=== PATIENT | female | born 1930 | race African-American/Black ===

== ENCOUNTER 2017-11-02 09:30 | Inpatient (IN) | payer MEDICARE, MEDICAID ==
[2017-11-02 09:58] LABS: Hemoglobin 10.7 g/dL (12.0-16.0); Mean Corpuscular HGB CONC 32.7 g/dL (32.0-36.0); Mean Corpuscular Hemoglobin 34.6 pg (27.0-31.0); Mean Platelet Volume 7.2 fL (7.4-10.4); Platelet Count 146 thou/uL (130-400); RBC Distribution Width 15.4 % (11.5-14.5); White Blood Cell (WBC) Count 11.3 thou/uL (4.8-10.8)
[2017-11-02 10:03] LABS: #Lymphocytes 1.3 thou/uL (1.20-3.40); #Monocytes 1.5 thou/uL (0.11-0.59); #Neutrophils 8.4 thou/uL (1.40-6.50); %Basophils 0.1 % (0.0-1.0); %Eosinophils 0.3 % (0.0-10.0); %Lymphocytes 11.5 % (21.0-51.0); %Monocytes 13.2 % (0.0-10.0)
[2017-11-02 10:06] LABS: INR-International Normal Ratio 1.2; PTT 30.8 SEC (22.9-36.1); Prothrombin Time 15.3 SEC (12.0-14.7)
[2017-11-02 10:22] LABS: ALT (SGPT) 52 U/L (8-55); AST (SGOT) 67 U/L (5-34); Albumin 3.9 g/dL (3.4-4.8); Alkaline Phosphatase 166 U/L (40-150); Anion Gap 14 mmol/L (10-20); BUN (Urea Nitrogen) 40 mg/dL (9.8-20.1); Bilirubin, Total 0.5 mg/dL (0.2-1.2); Calc. Creatinine Clearance 0 mL/min (70-130); Calcium 8.7 mg/dL (7.8-10.44); Carbon Dioxide 29 mmol/L (23-31); Chloride 95 mmol/L (98-107); Estimated GFR-MDRD 11; Globulin 3.2 g/dL (2.4-3.5); Glucose 127 mg/dL (83-110); Lipase 15 U/L (8-78); Magnesium 2.4 mg/dL (1.6-2.6); Potassium 4.4 mmol/L (3.5-5.1); Protein, Total 7.1 g/dL (6.0-8.3); Sodium 134 mmol/L (136-145)
[2017-11-02 10:26] LABS: CKMB 2.8 ng/mL (0-6.6); Troponin I 0.024 ng/mL (< 0.028)
[2017-11-02] MEDS ORDERED: methylPREDNISolone Sod Succ/PF 125 MG/2 ML VIAL ONE (11:23)
[2017-11-02] MEDS ORDERED: Piperacillin/Tazobactam 3.375 GM VIAL ONE (11:23)
--- NOTE | 2017-11-02 11:26 | RAD ---
PORTABLE UPRIGHT FRONTAL CHEST RADIOGRAPH: 11/02/2017 HISTORY: Generalized weakness and shortness of breath. History of atrial fibrillation. COMPARISON: 04/01/2016 FINDINGS: The cardiac silhouette is prominent. Atherosclerotic calcification of the aortic arch is noted. Pro minent bilateral shoulder osteoarthritic changes. No lobar consolidation or alveolar edema. IMPRESSION: No focal consolidation or alveolar edema. POS: [facility]
[2017-11-02 12:13] LABS: Bilirubin Small (Negative); Blood, Urine Moderate (Negative); Clarity CLOUDY (Clear); Glucose, Urine (Dipstick) Negative (Negative); Leukocyte Large (Negative); Nitrite Negative (Negative); Protein, Urine (Dipstick) 30 mg/dL (Neg-Trace); Specific Gravity, Urine 1.019 (1.002-1.036); Urobilinogen 0.2 mg/dL (0.2-1.0)
[2017-11-02 12:15] LABS: Bacteria/HPF 2+ HPF (None Seen); Pathc Cast-AUWi Flag 1.59 (0-2.49); Squamous Epithelial 0-3 HPF (0-3)
[2017-11-02 12:26] LABS: Yeast-All Forms 2+ HPF (None Seen)
[2017-11-02 12:27] LABS: Hyaline Casts/LPF 0-3 HYALINE CAST LPF (0-3 Hyaline)
--- NOTE | 2017-11-02 12:44 | CT ---
HEAD CT WITHOUT CONTRAST: 11/02/2017 HISTORY: Generalized weakness and shortness of breath. COMPARISON: 04/01/2016 TECHNIQUE: Serial axial CT imaging at 5 mm intervals, from the vertex through the skull base, without contrast. FINDINGS: The imaged paranasal sinuses and mastoid air cells are well aerated. There is no displaced calvarial fracture. No intracranial hemorrhage, midline shift, or mass effect is seen. There is atherosclerotic calcification of the cavernous carotid arteries. There is periventricular, deep, and subcortical white matter hypodensity, right greater than left, ev idence of small vessel disease. There is stable diffuse cerebral volume loss. IMPRESSION: Chronic findings, as described above. No intracranial hemorrhage. If there is concern for acute inf arction, follow-up brain MRI is suggested. POS: [facility]
[2017-11-02 14:16] LABS: Troponin I 0.035 ng/mL (< 0.028)
[2017-11-02 14:43] LABS: Actual Bicarbonate (HCO3a) 28.3 mEq/L (22-26); Base Excess (BEa) 1.7 mEq/L (0 (+/-) 2.5); CO2 Tension 54.8 mmHg (35.0-45.0); Hematocrit-ABG 35.7 % (36.0-47.0); O2 Tension (PaO2) 63.9 mmHg (80.0-100.0); pH, Arterial 7.33 (7.35-7.45)
[2017-11-02 14:44] LABS: Analyzer IN Cardio ER; Calcium, Ionized 1.1 mmol/L (1.12-1.30); Puncture Site RBRACH
[2017-11-02] MEDS ORDERED: cefTRIAXone\\ROCEPHIN 1 GM in Sodium Chloride 0.9% 100 ML IVPB SCH (14:45)
[2017-11-02] MEDS ORDERED: Ondansetron ODT 4 MG TAB SL PRN (16:22)
[2017-11-02] MEDS ORDERED: Ondansetron HCl/PF 4 MG/2 ML Vial IVP PRN ×2 (16:22→18:55)
[2017-11-02] MEDS ORDERED: Acetaminophen 325 MG TAB PO PRN (16:22)
[2017-11-02 18:20] LABS: Troponin I 0.039 ng/mL (< 0.028)
[2017-11-02] MEDS ORDERED: Chloraseptic Spray 180 ml Bottle PO PRN (18:55)
[2017-11-02] MEDS ORDERED: Calcium Acetate 667 MG CAP PO PRN (18:55)
[2017-11-02] MEDS ORDERED: cloNIDine 0.1 MG TAB PO PRN (18:55)
[2017-11-02] MEDS ORDERED: Ondansetron ODT 4 MG TAB PO PRN (18:55)
[2017-11-02] MEDS ORDERED: Lidocaine-Prilocaine 2.5% Cream 5 GM TUBE TOP SCH (19:00)
[2017-11-02] MEDS: Acetaminophen 500 MG TAB PO PRN (20:10)
[2017-11-02] MEDS: Folic Acid/Vit B Comp W-C PO SCH (20:10)
[2017-11-02] MEDS: Docusate 100 MG CAP PO SCH (20:10)
[2017-11-02] MEDS: Furosemide 40 MG TAB PO SCH (20:10)
[2017-11-02] MEDS: Artificial Tear Sol 15 ML BOT EA EYE SCH (20:11)
[2017-11-02] MEDS: Gabapentin 100 MG CAP PO SCH (20:11)
[2017-11-02] MEDS: Losartan 25 MG TAB PO SCH (20:11)
[2017-11-02] MEDS: Lidocaine-Prilocaine 2.5% Cream 5 GM TUBE TOP SCH (20:12)
[2017-11-02] MEDS ORDERED: Famotidine 20 MG TAB PO SCH (21:00)
[2017-11-02] MEDS ORDERED: Dextrose 5% in Water 1,000 ML IV PRN (21:30)
[2017-11-02] MEDS ORDERED: Insulin Regular 300 UNITS/3 ML VIAL SC PRN ×2 (21:30)
[2017-11-02] MEDS ORDERED: Dextrose 50% Abboject 50 ML SYRINGE SLOW IVP PRN (21:30)
[2017-11-02] MEDS: Ciprofloxacin Lactate/D5W 200 MG in Premix Bag 1 BAG IVPB SCH (21:34)
--- NOTE | 2017-11-02 23:35 | HP ---
DATE OF ADMISSION: 11/02/2017 PRIMARY CARE PROVIDER: Dr. Loyda Marie. PRIMARY COMMODITY DIRECTOR: Dr. Joe Davenport. HISTORY OF PRESENT ILLNESS: This is an 87-year-old -Maldivian female who presents to [facility] in transfer from [facility] with apparent increased shortness of breath, wheezing, general weakness and altered mentation. The patient was evaluated by EMS personnel at [facility], placed on oxygen supplementation as well as given bronchodilator therapy w ith DuoNebs x3 en route to the emergency room. The patient initially noted hypoxic in the 80s receiv ing the bronchodilator therapy and oxygen supplementation. The patient apparently also received Roce phin IV x1 dose. History is obtained after discussions with the ER attending as well as review of [facility] records as patient is unable to provide a coherent and consistent history. T he patient apparently developed the symptoms in the last 24 hours. No specific documented fever, chi lls, exposure history. No history of recent falls; however, the patient does have a history of falls remotely precluding anticoagulation for chronic atrial fibrillation. The patient does report that s he typically does not ambulate and needs assistance to transfer to a wheelchair for mobilization. e patient admits to increased dry cough, but no hemoptysis. No change to bowel movements with last b owel movement in the last 24 hours. The patient is also with significant history of end-stage renal disease requiring hemodialysis 3 times per week. The patient states she had noticed some increased s welling of her lower extremities and shortness of breath, especially when lying flat. In the emergen cy room, the patient underwent general evaluation including chest imaging showing no acute infiltrate s. The patient received IV vancomycin, Rocephin, Zosyn, Solu-Medrol, and DuoNebs after a concern for occult infectious process. The patient also received oxygen supplementation maintaining O2 saturati ons in the 95% range on 2 liters per minute by nasal cannula. PAST MEDICAL HISTORY: 1. History of TIA/CVA with residual left-sided weakness. 2. Hypertension. 3. History of gastrointestinal bleed. 4. Dyslipidemia. 5. Dementia. 6. Systolic congestive heart failure with ejection fraction of 35% range. 7. Chronic atrial fibrillation without anticoagulation due to history of falls and gastrointestinal bleeding. 8. Osteoarthritis. 9. End-stage renal disease with hemodialysis Tuesday, Tuesday, and Tuesday. 10. Chronic anemia secondary to chronic kidney disease. 11. History of left-sided breast cancer. 12. Osteoarthritis. PAST SURGICAL HISTORY: 1. Status post bilateral total knee arthroplasty. 2. Status post hysterectomy. 3. Status post left breast lumpectomy. 4. Status post AV fistula placement in the left upper extremity. 5. Status post back surgery. CURRENT MEDICATIONS: 1. Acetaminophen 650 mg p.o. q.4-6 hours p.r.n. 2. Amiodarone 200 mg p.o. daily. 3. Lipitor 5 mg p.o. at bedtime. 4. Dulcolax 5 mg p.o. p.r.n. constipation. 5. PhosLo 667 mg 2 capsules p.o. t.i.d. with meals. 6. Vitamin D3 of 2000 units p.o. daily. 7. Plavix 75 mg 1 tab p.o. daily. 8. Colace 100 mg p.o. b.i.d. 9. Folic acid with vitamin B complex 0.8 mg p.o. at bedtime. 10. Lasix 40 mg p.o. b.i.d. 11. Gabapentin 100 mg p.o. t.i.d. 12. Isosorbide mononitrate 60 mg p.o. daily. 13. Cozaar 50 mg p.o. at bedtime. 14. Nitroglycerin 0.4 mg sublingually every 5 minutes p.r.n. chest pain. 15. Klor-Con Sprinkle 10 mEq p.o. daily. 16. Tramadol 50 mg p.o. q.8 hours p.r.n. 17. Trazodone 25 mg p.o. b.i.d. 18. Coenzyme Q10 of 100 mg p.o. daily. ALLERGIES: 1. PIROXICAM. 2. LISINOPRIL. 3. NSAIDs. FAMILY HISTORY: Multiple members with diabetes mellitus. Son with an HI at age 56. SOCIAL HISTORY: The patient resides at [facility]. No current alcohol, tobacco or illici t drug use. Medical power of underground mining section foreman is Rob Elizabeth. Two-person assist for transfers and mob ilization with wheelchair. REVIEW OF SYSTEMS: The following complete review of systems was negative, unless otherwise mentioned in the HPI or below: Constitutional: Weight loss or gain, ability to conduct usual activities. Sk in: Rash, itching. Eyes: Double vision, pain. ENT/Mouth: Nose bleeding, neck stiffness, pain, te nderness. Cardiovascular: Palpitations, dyspnea on exertion, orthopnea. Respiratory: Shortness of breath, wheezing, cough, hemoptysis, fever or night sweats. Gastrointestinal: Poor appetite, abdom inal pain, heartburn, nausea, vomiting, constipation, or diarrhea. Genitourinary: Urgency, frequenc y, dysuria, nocturia. Musculoskeletal: Pain, swelling. Neurologic/Psychiatric: Anxiety, depressio n. Allergy/Immunologic: Skin rash, bleeding tendency. PHYSICAL EXAMINATION: VITAL SIGNS: On admission, blood pressure 125/58, pulse 114, respiratory rate 20, temperature 98.7 d egrees Fahrenheit, O2 saturation 95% on room air. GENERAL APPEARANCE: This is an 87-year-old -Maldivian female, opens eyes to questions. Answer s in two-word sentences and in no acute distress. HEENT: Pupils are equal, round, and reactive to light and accommodation. Extraocular muscles are in tact. No scleral icterus. Mild conjunctival injection bilaterally. Nares patent. OP is clear. NECK: Supple, no cervical adenopathy, no thyromegaly, no carotid bruits, no JVD appreciated. Cervic al spine with full active and passive range of motion. No meningeal signs appreciated. Scalp is atr aumatic. CHEST: Basilar coarse breath sounds bilaterally. Diminished in the bases. CARDIOVASCULAR: S1, S2 with irregular rate and rhythm, distant heart sounds. ABDOMEN: Rounded, soft, nontender, nondistended. Bowel sounds are positive in all four quadrants. There is no hepatosplenomegaly, no abdominal bruits, no rebound or guarding appreciated. EXTREMITIES: Warm and dry with fair turgor. Pitting edema to the proximal shins bilaterally. Pulse s palpable distally at the dorsalis pedis, posterior tibial, and popliteal arteries bilaterally. Cap illary refill less than 2 seconds. NEUROLOGIC: Lethargic, but opens eyes to direct stimulus and name. Answers in two-word sentences. Nods to questions. Not observed ambulatory. The rest of the cranial nerves II-XII are grossly intac t. PERTINENT LABORATORY AND X-RAY FINDINGS: Sodium 134, potassium 4.4, chloride 95, CO2 of 29, BUN 40, creatinine 4.68, estimated GFR of 11, glucose 127, calcium 8.7, magnesium 2.4, total bilirubin 0.5, A ST of 67, ALT of 52, alkaline phosphatase 166. Troponin I ranged between 0.024 to 0.035. BNP 2020 p reviously noted 495 on 06/20/2013. Lipase 15. CBC showed a white blood cell count 11.3, hemoglobin 11, hematocrit 33, MCV 106, platelet count 146 with normal differential. ABG dated 11/02/2017 showed a pH of 7.33, pCO2 of 55, pO2 of 64, O2 saturation 92% on room air. CT of the brain without contras t dated 11/02/2017 showed no acute intracranial process. Chronic changes bilaterally. Portable ches t x-ray dated 11/02/2017 showed no focal consolidation. EKG dated 11/02/2017 by my interpretation sh ows atrial fibrillation with heart rates in the 115s. Attenuated R waves noted in the precordial melony ds. Left axis deviation noted. T-wave changes. Isolated in lead V6. ASSESSMENT AND PLAN: 1. Acute hypercapnic hypoxic respiratory failure. The patient will be admitted to the telemetry uni t. Suspect secondarily to volume overload in the context of end-stage renal disease and history of s ystolic congestive heart failure. The patient was taken for urgent hemodialysis for volume removal c urrently. We will continue oxygen supplementation to maintain O2 saturations greater than or equal t o 90%. 2. Acute systolic congestive heart failure exacerbation. We will continue supportive measures. Res ume Lasix 40 mg p.o. b.i.d. Continue hemodialysis as outlined in #1. Check 2D transthoracic echocar diogram for assessment of ejection fraction and wall motion abnormality. 3. End-stage renal disease with hemodialysis. Patient is presenting with volume overload, receiving hemodialysis currently at the direction of Nephrology Service, likely will need serial hemodialysis sessions in the next 48 hours. 4. Acute encephalopathy. Suspect secondarily to multiple metabolic processes and hypoxia/hypercapni a. We will continue supportive management and monitor clinical response. Limit psychotropic medicat ion. 5. Chronic atrial fibrillation, variable rate currently. We will continue home medication regimen t o include amiodarone 200 mg daily. No anticoagulation due to history of falls and GI bleeding. Cont inue Plavix 75 mg p.o. daily. 6. Prophylaxis. Sequential compression devices while in bed. Pepcid 20 mg p.o. b.i.d. 7. Code status is FULL. Surrogate medical decision maker is Michael Elizabeth. We will need to ve rify code status with family members in the a.m.
--- NOTE | 2017-11-03 | CON ---
DATE OF CONSULTATION: 11/02/2017 CONSULTING PHYSICIAN: Dr. Diaz. REQUESTING PHYSICIAN: Dr. Martines. REASON FOR CONSULTATION: Need for maintenance hemodialysis. IMPRESSION: 1. End-stage renal disease, hemodialysis dependent Tuesday, Tuesday, Tuesday, due for dialysis today . 2. Altered mental status, query cause, possibly in the context of infection. 3. Urinary tract infection/incipient sepsis. 4. Hypoxic respiratory failure, improved. 5. Hypervolemia. PLAN: 1. Dialyze the patient as per schedule with ultrafiltration as tolerated by hemodynamics. 2. Blood gas to rule out carbon dioxide narcosis. 3. Broad spectrum antibiotics pending culture sensitivity, therefore, the patient to be on Rocephin and Cipro. We will discontinue vancomycin. 4. Further management will be dependent on the clinical course. HISTORY OF PRESENT ILLNESS: History is that of 87-year-old female patient with end-stage renal disea se, hemodialysis dependent Tuesday, Tuesday and Tuesday, who was sent over from [facility] because of weakness. On route, the patient noted to be hypoxic, receive nebulizer treatment and wit h oxygen improvement. On presentation to the ER, the patient was able to be interactive, but suddenl y became much more somnolent, only responsive to painful stimuli. The patient noted with clinical ev idence of hypervolemia though chest x-ray did not show any evidence of pulmonary congestion. The ut ed for maintenance hemodialysis necessitated this renal consultation. PAST MEDICAL HISTORY: End-stage renal disease, hemodialysis dependent, atrial fibrillation, GI bleed , coronary artery disease, dyslipidemia, congestive heart failure. MEDICATIONS: Reviewed as documented on [facility]. ALLERGIES: To LISINOPRIL, PIROXICAM, NONSTEROIDAL ANTI-INFLAMMATORY DRUGS. REVIEW OF SYSTEMS: Could not be obtained given the clinical status of this patient. FAMILY HISTORY: Not significantly related to the presenting illness. SOCIAL HISTORY: senior living resident. Denies alcohol, tobacco or illicit drug use. PHYSICAL EXAMINATION: GENERAL: The patient was found to be very somnolent and hemodynamically stable. HEENT: Unremarkable. CARDIOVASCULAR SYSTEM: First and second heart sounds were heard. RESPIRATORY SYSTEM: Revealed a lot of transmitted sounds or gurgling sounds. DIGESTIVE SYSTEM: Revealed a benign abdomen. EXTREMITIES: No peripheral edema. SKIN: No new gross rash. NEUROLOGIC: The patient is very somnolent. No lateralizing sign. LYMPHATICS: No peripheral lymphadenopathy. SUMMARY: An 87-year-old female patient with end-stage renal disease, hemodialysis dependent, who pre sented here with altered mental status and now been admitted for further workup with clear-cut eviden ce of possible urinary tract infection.
[2017-11-03] MEDS: hydrALAZINE 20 MG/ML VIAL SLOW IVP PRN (05:09)
[2017-11-03] MEDS: Acetaminophen 500 MG TAB PO PRN (05:09)
[2017-11-03 06:09] LABS: Anion Gap 20 mmol/L (10-20); BUN (Urea Nitrogen) 21 mg/dL (9.8-20.1); Calc. Creatinine Clearance 20 mL/min (70-130); Calcium 9.7 mg/dL (7.8-10.44); Carbon Dioxide 25 mmol/L (23-31); Chloride 96 mmol/L (98-107); Estimated GFR-MDRD 20; Glucose 110 mg/dL (83-110); Potassium 4.6 mmol/L (3.5-5.1); Sodium 136 mmol/L (136-145)
[2017-11-03 06:11] LABS: Anisocytosis SLIGHT = 6-15 cells (100X) (0-5/hpf); Band 1 % (5-11); Hemoglobin 11.6 g/dL (12.0-16.0); Lymphocytes 6 % (21-51); MDiff Complete? YES; Macrocytosis SLIGHT = 6-15 cells (100X) (0-5/hpf); Mean Corpuscular HGB CONC 32.8 g/dL (32.0-36.0); Mean Corpuscular Hemoglobin 34.5 pg (27.0-31.0); Mean Platelet Volume 7.6 fL (7.4-10.4); Monocytes 10 % (0-10); Neutrophil 83 % (42-75); PLT Morphology Comment Appears Decreased; Platelet Count 112 thou/uL (130-400); RBC Distribution Width 15.4 % (11.5-14.5); Red Blood Cell (RBC) Count 3.36 mill/uL (4.20-5.40); Spherocytes SLIGHT = 1-5 cells (100X) (None Seen); White Blood Cell (WBC) Count 6.6 thou/uL (4.8-10.8)
[2017-11-03] MEDS: Ubidecarenone 50 MG CAP PO SCH (09:30)
[2017-11-03] MEDS: Clopidogrel Bisulfate 75 MG TAB PO SCH (09:31)
[2017-11-03] MEDS: Gabapentin 100 MG CAP PO SCH ×3 (09:31→22:02)
[2017-11-03] MEDS: Docusate 100 MG CAP PO SCH ×2 (09:31→22:02)
[2017-11-03] MEDS: Lactinex Tablet PO SCH (09:31)
[2017-11-03] MEDS: Furosemide 40 MG TAB PO SCH ×2 (09:31→22:02)
[2017-11-03] MEDS: Potassium Chloride 10 MEQ TAB PO SCH (09:31)
[2017-11-03] MEDS: Calcium Acetate 667 MG CAP PO SCH ×3 (09:31→17:11)
[2017-11-03] MEDS: Amiodarone 200 MG TAB PO SCH (09:31)
[2017-11-03] MEDS: Artificial Tear Sol 15 ML BOT EA EYE SCH ×2 (09:32→21:59)
[2017-11-03] MEDS: Ciprofloxacin Lactate/D5W 200 MG in Premix Bag 1 BAG IVPB SCH ×2 (09:32→22:01)
--- NOTE | 2017-11-03 14:22 | PDOC.PN ---
- Subjective Encounter Start Date: 11/03/17 Encounter Start Time: 14:20 Subjective: f/u for acute resp failure due to volume overload, CHF with EF 20%, ESRD -: on HD. Still will some confusion and SOB but down to O2 @ 1L/min. - Objective Resuscitation Status: Resuscitation Status FULL:Full Resuscitation MAR Reviewed: Yes Vital Signs & Weight: Vital Signs (12 hours) Temp Pulse Resp BP BP BP Pulse Ox 11/03/17 12:25 98.0 F 107 H 128/93 H 100 11/03/17 08:20 98.2 F 107 H 17 132/69 98 11/03/17 05:09 112 H 174/113 H 11/03/17 04:09 98.4 F 112 H 18 174/113 H 91 L Weight Weight 199 lb 14.4 oz I&O: 11/02/17 11/03/17 11/04/17 06:59 06:59 06:59 Intake Total 320 Balance 320 Result Diagrams: 11/03/17 05:33 11/03/17 05:33 Additional Labs: Accuchecks 11/03/17 11/03/17 11/02/17 10:27 05:29 21:33 POC Glucose 130 H 108 145 H Microbiology 11/02/17 13:46 Venous blood - Right Hand Blood Culture - Preliminary Specimen has been received and culture in progress. No Growth to date. 11/02/17 13:14 Venous blood - Right Hand Blood Culture - Preliminary Specimen has been received and culture in progress. No Growth to date. 11/02/17 11:44 Urine Straight Catheter Urine Culture - Preliminary Yeast species Laboratory Tests 11/02/17 11/02/17 11/02/17 09:48 09:48 09:48 Creatinine 4.68 H Troponin I 0.024 B-Natriuretic Peptide 2020.5 H 11/02/17 11/02/17 11/03/17 13:46 17:46 05:33 Creatinine Troponin I 0.035 H 0.039 H B-Natriuretic Peptide 3214.8 H Radiology Reviewed by me: Yes (2D echo - EF 20-25%, mod MR/TR, JEANIE) EKG Reviewed by me: Yes (Tele - A-fib in 90's) Phys Exam - Physical Examination answers questions briefly, alert HEENT: moist MMs, sclera anicteric, oral pharynx no lesions Neck: no nodes, no JVD, supple coarse sounds bilat, + crackles bilat distant heart sounds I/ WILLIAM in RUSB Cardiovascular: no rub, irregular Gastrointestinal: soft, non-tender, no distention, positive bowel sounds minimal peripheral edema Musculoskeletal: pulses present Neurological: normal sensation, moves all 4 limbs A x O x 1 Skin: no rash, normal turgor, cap refill <2 seconds Dx/Plan (1) Acute respiratory failure with hypoxia Code(s): J96.01 - ACUTE RESPIRATORY FAILURE WITH HYPOXIA Status: Acute Comment: Continue O2 @ 1L/min NC, general pulmonary supportive mgmt, add Duonebs (2) Acute on chronic systolic CHF (congestive heart failure) Code(s): I50.23 - ACUTE ON CHRONIC SYSTOLIC (CONGESTIVE) HEART FAILURE Status : Acute Comment: EF 20-25%, poor prognosis with depressed EF, HD for volume mgmt (3) ESRD (end stage renal disease) on dialysis Code(s): N18.6 - END STAGE RENAL DISEASE; Z99.2 - DEPENDENCE ON RENAL DIALYSIS Status: Chronic Comment: Volume overload, serial HD for volume mgmt (4) Acute encephalopathy Code(s): G93.40 - ENCEPHALOPATHY, UNSPECIFIED Status: Acute Comment: ? baseline, likely multifactorial with metabolic influence and multiple co-morbid conditions (5) Chronic a-fib Code(s): I48.2 - CHRONIC ATRIAL FIBRILLATION Status: Chronic Comment: Rate variable, continue Amiodarone, no anticoagulation due to hx of GI bleeding - Plan continue antibiotics, renal social worker, respiratory therapy, DVT proph w/SCDs Continue pulmonary supportive mgmt -: Add Duonebs q4h prn -: HD per Renal service -: Palliative care consult -: Continue ASA 81mg daily * AM lab: BMP
[2017-11-03] MEDS: cefTRIAXone\\ROCEPHIN 1 GM, Syringe 0.4 ML in Sterile Water 9.6 ML SLOW IVP SCH (14:35)
[2017-11-03] MEDS: Folic Acid/Vit B Comp W-C PO SCH (22:02)
[2017-11-03] MEDS: Famotidine 20 MG TAB PO SCH (22:02)
[2017-11-03] MEDS: Losartan 25 MG TAB PO SCH (22:03)
[2017-11-04 05:19] LABS: Anion Gap 15 mmol/L (10-20); BUN (Urea Nitrogen) 39 mg/dL (9.8-20.1); Calc. Creatinine Clearance 14 mL/min (70-130); Calcium 9.8 mg/dL (7.8-10.44); Carbon Dioxide 28 mmol/L (23-31); Chloride 93 mmol/L (98-107); Estimated GFR-MDRD 13; Glucose 99 mg/dL (83-110); Potassium 5.1 mmol/L (3.5-5.1); Sodium 131 mmol/L (136-145)
[2017-11-04] MEDS: Artificial Tear Sol 15 ML BOT EA EYE SCH ×2 (09:25→22:08)
[2017-11-04] MEDS: Lidocaine-Prilocaine 2.5% Cream 5 GM TUBE TOP SCH (09:26)
[2017-11-04] MEDS: Ciprofloxacin Lactate/D5W 200 MG in Premix Bag 1 BAG IVPB SCH ×2 (09:26→22:11)
[2017-11-04] MEDS: Clopidogrel Bisulfate 75 MG TAB PO SCH (09:27)
[2017-11-04] MEDS: Amiodarone 200 MG TAB PO SCH (09:27)
[2017-11-04] MEDS: Ubidecarenone 50 MG CAP PO SCH (09:45)
[2017-11-04] MEDS: Furosemide 40 MG TAB PO SCH ×2 (09:46→22:12)
[2017-11-04] MEDS: Docusate 100 MG CAP PO SCH ×2 (09:48→22:11)
[2017-11-04] MEDS: Gabapentin 100 MG CAP PO SCH ×3 (09:48→22:12)
[2017-11-04] MEDS: Calcium Acetate 667 MG CAP PO SCH ×2 (09:48→14:51)
[2017-11-04] MEDS: Lactinex Tablet PO SCH (09:48)
[2017-11-04] MEDS: Potassium Chloride 10 MEQ TAB PO SCH (09:50)
[2017-11-04] MEDS: cefTRIAXone\\ROCEPHIN 1 GM, Syringe 0.4 ML in Sterile Water 9.6 ML SLOW IVP SCH (13:55)
--- NOTE | 2017-11-04 18:12 | PDOC.PN ---
- Subjective Encounter Start Date: 11/04/17 Encounter Start Time: 18:00 Subjective: f/u for acute resp failure with volume overload in context ESRD on HD -: CHF with EF 25%. - Objective Resuscitation Status: Resuscitation Status DNR:Do Not Resuscitate MAR Reviewed: Yes Vital Signs & Weight: Vital Signs (12 hours) Temp Pulse Resp BP Pulse Ox 11/04/17 12:35 99.1 F 99 18 168/97 H 99 11/04/17 07:25 97.9 F 104 H 18 11/04/17 07:20 97.9 F 104 H 18 134/93 H 98 Weight Weight 200 lb 3.2 oz I&O: 11/03/17 11/04/17 11/05/17 06:59 06:59 06:59 Intake Total 320 1560 Output Total 600 Balance 320 960 Result Diagrams: 11/03/17 05:33 11/04/17 04:47 Additional Labs: Accuchecks 11/04/17 11/04/17 11/03/17 10:55 05:56 21:10 POC Glucose 139 H 92 130 H Microbiology 11/02/17 13:46 Venous blood - Right Hand Blood Culture - Preliminary Specimen has been received and culture in progress. No Growth to date. 11/02/17 13:14 Venous blood - Right Hand Blood Culture - Preliminary Specimen has been received and culture in progress. No Growth to date. 11/02/17 11:44 Urine Straight Catheter Urine Culture - Preliminary Yeast species Laboratory Tests 11/02/17 11/02/17 11/02/17 09:48 09:48 09:48 Creatinine 4.68 H Troponin I 0.024 B-Natriuretic Peptide 2020.5 H 11/02/17 11/02/17 11/03/17 13:46 17:46 05:33 Creatinine Troponin I 0.035 H 0.039 H B-Natriuretic Peptide 3214.8 H EKG Reviewed by me: Yes (Tele - A-fib in 90's) Phys Exam - Physical Examination opens eyes to name, mumbles a few words HEENT: moist MMs, sclera anicteric, oral pharynx no lesions Neck: no nodes, no JVD, supple exp wheezing bilat, prolonged exp phase few scattered rhonchi, diminished flow in bases I/ WILLIAM RUSB Cardiovascular: no rub, gallop, irregular Gastrointestinal: soft, non-tender, no distention, positive bowel sounds minimal edema of LE's Musculoskeletal: pulses present lethargic but opens eyes to name A x O x 1 Skin: no rash, normal turgor, cap refill <2 seconds Dx/Plan (1) Acute respiratory failure with hypoxia Code(s): J96.01 - ACUTE RESPIRATORY FAILURE WITH HYPOXIA Status: Acute Comment: Continue O2 @ 2L/min NC, general pulmonary supportive mgmt, add Duonebs , add Solumedrol 40mg IV q6h (2) Acute on chronic systolic CHF (congestive heart failure) Code(s): I50.23 - ACUTE ON CHRONIC SYSTOLIC (CONGESTIVE) HEART FAILURE Status : Acute Comment: EF 20-25%, poor prognosis with depressed EF, HD for volume mgmt (3) ESRD (end stage renal disease) on dialysis Code(s): N18.6 - END STAGE RENAL DISEASE; Z99.2 - DEPENDENCE ON RENAL DIALYSIS Status: Chronic Comment: Volume overload, serial HD for volume mgmt (4) Acute encephalopathy Code(s): G93.40 - ENCEPHALOPATHY, UNSPECIFIED Status: Acute Comment: ? baseline, likely multifactorial with metabolic influence and multiple co-morbid conditions (5) Chronic a-fib Code(s): I48.2 - CHRONIC ATRIAL FIBRILLATION Status: Chronic Comment: Rate variable, continue Amiodarone, no anticoagulation due to hx of GI bleeding - Plan continue antibiotics, PT/OT, social media intern, DVT proph w/SCDs Continue supportive mgmt -: Add Solumedrol 40mg IV q6h -: Continue Duonebs q4h -: HD with 4L removed today -: Code Status: DNR confirmed with family * AM lab: BMP * Palliative care consult appreciated
--- NOTE | 2017-11-04 21:40 | PRG ---
DATE OF SERVICE: 11/04/2017 SUBJECTIVE: The patient seen and examined on dialysis, seems to be doing okay. OBJECTIVE: VITAL SIGNS: Afebrile with temperature 99.1, pulse 99, respiration rate of 18, O2 sat 99% with blood pressure 168/97. HEENT: Unremarkable with moist oral mucosa. NECK: Supple. No conjunctival injection or icterus. CARDIOVASCULAR: First and second heart sounds were heard. RESPIRATORY SYSTEM: Revealed a lot of transmitted sounds and rhonchi. DIGESTIVE SYSTEM: Revealed a benign abdomen with positive bowel sounds. EXTREMITIES: No peripheral edema. SKIN: No new gross rash. LYMPHATICS: No peripheral lymphadenopathy. IMPRESSION: 1. End-stage renal disease, hemodialysis dependent. 2. Respiratory failure, query cause, likely multifactorial. 3. Advanced age. PLAN: 1. The patient to undergo hemodialysis today, modified in order to be able to optimize fluid removal . 2. Renally dose all medications. 3. Avoid potentially nephrotoxic agents. 4. Further management to be dependent on the clinical course.
[2017-11-04] MEDS: Famotidine 20 MG TAB PO SCH (22:11)
[2017-11-04] MEDS: Losartan 25 MG TAB PO SCH (22:12)
[2017-11-04] MEDS: Folic Acid/Vit B Comp W-C PO SCH (22:12)
[2017-11-05 06:02] LABS: Anion Gap 17 mmol/L (10-20); BUN (Urea Nitrogen) 38 mg/dL (9.8-20.1); Calc. Creatinine Clearance 15 mL/min (70-130); Calcium 8.9 mg/dL (7.8-10.44); Carbon Dioxide 26 mmol/L (23-31); Chloride 95 mmol/L (98-107); Estimated GFR-MDRD 14; Glucose 126 mg/dL (83-110); Sodium 133 mmol/L (136-145)
[2017-11-05] MEDS: Amiodarone 200 MG TAB PO SCH (08:45)
[2017-11-05] MEDS: Furosemide 40 MG TAB PO SCH ×2 (08:45→20:07)
[2017-11-05] MEDS: Potassium Chloride 10 MEQ TAB PO SCH (08:46)
[2017-11-05] MEDS: Clopidogrel Bisulfate 75 MG TAB PO SCH (08:47)
[2017-11-05] MEDS: Artificial Tear Sol 15 ML BOT EA EYE SCH ×2 (08:48→20:09)
[2017-11-05] MEDS: Lactinex Tablet PO SCH (08:49)
[2017-11-05] MEDS: Gabapentin 100 MG CAP PO SCH ×3 (08:49→20:08)
[2017-11-05] MEDS: Ubidecarenone 50 MG CAP PO SCH (08:52)
[2017-11-05] MEDS: Docusate 100 MG CAP PO SCH ×2 (08:52→20:08)
[2017-11-05] MEDS: Ciprofloxacin Lactate/D5W 200 MG in Premix Bag 1 BAG IVPB SCH (08:52)
[2017-11-05] MEDS: Calcium Acetate 667 MG CAP PO SCH ×3 (08:52→17:50)
[2017-11-05] MEDS: cefTRIAXone\\ROCEPHIN 1 GM, Syringe 0.4 ML in Sterile Water 9.6 ML SLOW IVP SCH (13:45)
--- NOTE | 2017-11-05 16:58 | PDOC.PN ---
- Subjective Encounter Start Date: 11/05/17 Encounter Start Time: 16:50 Subjective: f/u for acute resp failure secondary to volume overload in context of ESRD -: with HD and CHF with EF 25%. Remains on O2 @ 1L/min. STORE MGR evaluating -: for dysphagia. - Objective Resuscitation Status: Resuscitation Status DNR:Do Not Resuscitate MAR Reviewed: Yes Vital Signs & Weight: Vital Signs (12 hours) Temp Pulse Resp BP Pulse Ox 11/05/17 16:42 97.7 F 92 20 174/94 H 100 11/05/17 11:56 97.5 F L 88 16 140/88 99 11/05/17 10:09 97.9 F 85 20 100 11/05/17 08:41 97.9 F 85 20 174/105 H 100 Weight Weight 192 lb 3.889 oz I&O: 11/04/17 11/05/17 11/06/17 06:59 06:59 06:59 Intake Total 1560 700 Output Total 600 4000 Balance 960 -3300 Result Diagrams: 11/03/17 05:33 11/05/17 05:09 Additional Labs: Accuchecks 11/05/17 11/05/17 11/04/17 11:26 06:08 20:44 POC Glucose 146 H 127 H 116 H Microbiology 11/02/17 13:46 Venous blood - Right Hand Blood Culture - Preliminary Specimen has been received and culture in progress. No Growth to date. 11/02/17 13:14 Venous blood - Right Hand Blood Culture - Preliminary Specimen has been received and culture in progress. No Growth to date. 11/02/17 11:44 Urine Straight Catheter Urine Culture - Preliminary Yeast species Laboratory Tests 11/02/17 11/02/17 11/02/17 09:48 09:48 09:48 Creatinine 4.68 H Troponin I 0.024 B-Natriuretic Peptide 2020.5 H 11/02/17 11/02/17 11/03/17 13:46 17:46 05:33 Creatinine Troponin I 0.035 H 0.039 H B-Natriuretic Peptide 3214.8 H EKG Reviewed by me: Yes (Tele - A-fib in 80's) Phys Exam - Physical Examination opens eyes to name, nods to questions HEENT: PERRLA, moist MMs, sclera anicteric, oral pharynx no lesions Neck: no nodes, no JVD, supple coarse sounds, exp wheezes I/ WILLIAM RUSB Cardiovascular: no rub, irregular Gastrointestinal: soft, non-tender, no distention, positive bowel sounds mild edema Musculoskeletal: pulses present lethargic unless engaged directly A x O x 1 Skin: no rash, normal turgor, cap refill <2 seconds Dx/Plan (1) Acute respiratory failure with hypoxia Code(s): J96.01 - ACUTE RESPIRATORY FAILURE WITH HYPOXIA Status: Acute Comment: Continue O2 @ 1L/min NC, general pulmonary supportive mgmt, add Duonebs , add Solumedrol 40mg IV q6h (2) Acute on chronic systolic CHF (congestive heart failure) Code(s): I50.23 - ACUTE ON CHRONIC SYSTOLIC (CONGESTIVE) HEART FAILURE Status : Acute Comment: EF 20-25%, poor prognosis with depressed EF, HD for volume mgmt (3) ESRD (end stage renal disease) on dialysis Code(s): N18.6 - END STAGE RENAL DISEASE; Z99.2 - DEPENDENCE ON RENAL DIALYSIS Status: Chronic Comment: Volume overload, serial HD for volume mgmt (4) Acute encephalopathy Code(s): G93.40 - ENCEPHALOPATHY, UNSPECIFIED Status: Acute Comment: ? baseline, likely multifactorial with metabolic influence and multiple co-morbid conditions (5) Chronic a-fib Code(s): I48.2 - CHRONIC ATRIAL FIBRILLATION Status: Chronic Comment: Rate variable, continue Amiodarone, no anticoagulation due to hx of GI bleeding - Plan continue antibiotics, social media community manager, speech therapy, DVT proph w/SCDs Continue supportive mgmt -: HD per Renal service -: STORE MGR for ? dysphagia -: Continue ASA and Plavix -: Palliative care, consider Hospice * Code Status: DNR *
[2017-11-05] MEDS: Famotidine 20 MG TAB PO SCH (20:05)
[2017-11-05] MEDS: Losartan 25 MG TAB PO SCH (20:07)
[2017-11-05] MEDS: Folic Acid/Vit B Comp W-C PO SCH (20:08)
[2017-11-05] MEDS: Cipro 250 MG TAB PO SCH (20:32)
[2017-11-06] MEDS: Cipro 250 MG TAB PO SCH ×2 (07:08→20:31)
[2017-11-06] MEDS: Amiodarone 200 MG TAB PO SCH (08:45)
[2017-11-06] MEDS: Calcium Acetate 667 MG CAP PO SCH ×3 (08:45→17:27)
[2017-11-06] MEDS: Furosemide 40 MG TAB PO SCH ×2 (08:45→20:31)
[2017-11-06] MEDS: Gabapentin 100 MG CAP PO SCH ×3 (08:45→20:31)
[2017-11-06] MEDS: Clopidogrel Bisulfate 75 MG TAB PO SCH (08:45)
[2017-11-06] MEDS: Potassium Chloride 10 MEQ TAB PO SCH (08:46)
[2017-11-06] MEDS: Ubidecarenone 50 MG CAP PO SCH (08:46)
[2017-11-06] MEDS: Lactinex Tablet PO SCH (08:47)
[2017-11-06] MEDS: Artificial Tear Sol 15 ML BOT EA EYE SCH ×2 (08:47→20:31)
[2017-11-06] MEDS: Docusate 100 MG CAP PO SCH ×2 (09:43→20:31)
[2017-11-06] MEDS: cefTRIAXone\\ROCEPHIN 1 GM, Syringe 0.4 ML in Sterile Water 9.6 ML SLOW IVP SCH (12:43)
--- NOTE | 2017-11-06 14:58 | PDOC.PN ---
- Subjective Encounter Start Date: 11/06/17 Encounter Start Time: 11:30 Subjective: pt up in bed denies any complains but is not oriented - Objective Resuscitation Status: Resuscitation Status DNR:Do Not Resuscitate Vital Signs & Weight: Vital Signs (12 hours) Temp Pulse Resp BP BP Pulse Ox 11/06/17 13:25 97 11/06/17 13:21 91 16 11/06/17 13:05 98.3 F 81 18 179/87 H 99 11/06/17 08:00 98.1 F 102 H 17 998 H 11/06/17 07:37 98.1 F 102 H 17 167/79 H 96 11/06/17 04:00 97.9 F 102 H 18 174/86 H 99 Weight Weight 207 lb I&O: 11/05/17 11/06/17 11/07/17 06:59 06:59 06:59 Intake Total 700 780 Output Total 4000 Balance -3300 780 Result Diagrams: 11/03/17 05:33 11/05/17 05:09 Additional Labs: Accuchecks 11/06/17 11/06/17 11/05/17 10:55 05:36 20:39 POC Glucose 146 H 133 H 163 H 11/05/17 16:43 POC Glucose 131 H Phys Exam - Physical Examination HEENT: PERRLA, moist MMs, sclera anicteric, TM's clear, oral pharynx no lesions , 2+ tonsils Neck: no nodes, no JVD, supple, full ROM Respiratory: wheezing present rhonchi all over lungs Cardiovascular: RRR, no significant murmur, no rub, gallop, irregular Gastrointestinal: soft, non-tender, no distention, positive bowel sounds lower ext edema Neurological: non-focal, normal sensation, moves all 4 limbs Dx/Plan - Plan (1) Acute respiratory failure with hypoxia (2) Acute on chronic systolic CHF (congestive heart failure) (3) ESRD (end stage renal disease) on dialysis (4) Acute encephalopathy (5) Chronic a-fib - Plan continue antibiotics, social media director, speech therapy, DVT proph w/SCDs Continue supportive mgmt -: HD per Renal service -: EMS EDUCATOR for ? dysphagia -: Continue ASA and Plavix -: pt on iv steroids * . Review of Systems - Review of Systems Other: unable to participate - Medications/Allergies Allergies/Adverse Reactions: Allergies Allergy/AdvReac Type Severity Reaction Status Date / Time piroxicam [From Feldene] Allergy Intermediate Nausea Verified 06/21/13 02:33 lisinopril Allergy Verified 11/02/17 16:20 NSAIDS (Non-Steroidal Allergy Verified 11/02/17 16:20 Anti-Inflamma Medications: Current Medications Acetaminophen (Tylenol) 1,000 mg PO Q6H PRN PRN Reason: Headache/Fever or Mild Pain Last Admin: 11/03/17 05:09 Dose: 1,000 mg Acidophilus (Floranex) 1 tab PO DAILY [facility] Last Admin: 11/06/17 08:47 Dose: 1 tab Albuterol/Ipratropium (Duoneb) 3 ml NEB Q4H PRN PRN Reason: SOB &/or Wheezing Last Admin: 11/06/17 13:21 Dose: 3 ml Amiodarone HCl (Cordarone) 200 mg PO DAILY [facility] Last Admin: 11/06/17 08:45 Dose: 200 mg Artificial Tears (Tears Renewed 15ml Bottle) 0 drop EA EYE BID [facility] Last Admin: 11/06/17 08:47 Dose: 1 drop Aspirin (Aspirin Chewable) 81 mg PO DAILY [facility] Last Admin: 11/06/17 08:46 Dose: 81 mg Calcium Acetate (Phoslo) 667 mg PO PRN PRN PRN Reason: WITH SNACKS Calcium Acetate (Phoslo) 1,334 mg PO TID-WM [facility] Last Admin: 11/06/17 11:55 Dose: 1,334 mg Cholecalciferol (Vitamin D3) 2,000 units PO DAILY [facility] Last Admin: 11/06/17 08:47 Dose: 2,000 units Ciprofloxacin (Cipro) 250 mg PO 0600,2000 [facility] Last Admin: 11/06/17 07:08 Dose: 250 mg Clonidine (Catapres) 0.1 mg PO Q4H PRN PRN Reason: Systolic BP > 180 Last Admin: 11/05/17 00:26 Dose: 0.1 mg Clopidogrel Bisulfate (Plavix) 75 mg PO DAILY [facility] Last Admin: 11/06/17 08:45 Dose: 75 mg Coenzyme Q10 (Coenzyme Q10) 100 mg PO DAILY [facility] Last Admin: 11/06/17 08:46 Dose: Not Given Dextrose/Water (Dextrose 50%) 25 gm SLOW IVP PRN PRN PRN Reason: Hypoglycemia Docusate Sodium (Colace) 100 mg PO BID [facility] Last Admin: 11/06/17 09:43 Dose: Not Given Famotidine (Pepcid) 20 mg PO 2100 [facility] Last Admin: 11/05/17 20:05 Dose: 20 mg Furosemide (Lasix) 40 mg PO BID [facility] Last Admin: 11/06/17 08:45 Dose: 40 mg Gabapentin (Neurontin) 100 mg PO TID [facility] Last Admin: 11/06/17 14:13 Dose: 100 mg Glucagon (Glucagon) 1 mg IM PRN PRN PRN Reason: Hypoglycemia Hydralazine HCl (Apresoline) 10 mg SLOW IVP Q4H PRN PRN Reason: Systolic BP > 180 Last Admin: 11/03/17 05:09 Dose: 10 mg Ceftriaxone Sodium 1 gm/ (Syringe 0.4 ml/ Sterile Water) 10 mls @ 120 mls/hr SLOW IVP 1330 [facility] Last Admin: 11/06/17 12:43 Dose: 10 mls Dextrose/Water (D5w) 1,000 mls @ 0 mls/hr IV .Q0M PRN; As Directed PRN Reason: Hypoglycemia Insulin Human Regular (Humulin R) 0 units SC .MILD SLIDING SCALE PRN PRN Reason: Mild Correctional Scale Insulin Human Regular (Humulin R) 0 units SC .BEDTIME SLIDING SC PRN PRN Reason: Bedtime Correctional Scale Isosorbide Mononitrate (Imdur) 60 mg PO DAILY [facility] Last Admin: 11/06/17 08:46 Dose: 60 mg Lidocaine/Prilocaine (Emla 2.5%) 0 gm TOP MoWeFr [facility] Last Admin: 11/04/17 09:26 Dose: 1 applic Losartan Potassium (Cozaar) 50 mg PO HS [facility] Last Admin: 11/05/17 20:07 Dose: 50 mg Methylprednisolone Sodium Succinate (Solu-Medrol) 40 mg IVP 0200,0800,1400, 2000 [facility] Last Admin: 11/06/17 14:13 Dose: 40 mg Ondansetron HCl (Zofran Odt) 4 mg PO Q6H PRN PRN Reason: Nausea/Vomiting Ondansetron HCl (Zofran) 4 mg IVP Q6H PRN PRN Reason: Nausea/Vomiting Phenol (Chloraseptic [place] 180 Ml Bot) 0 ml PO Q4H PRN PRN Reason: SORE THROAT Potassium Chloride (Klor-Con) 10 meq PO DAILY [facility] Last Admin: 11/06/17 09:37 Dose: Not Given Sodium Chloride (Flush - Normal Saline) 10 ml IVF Q12HR [facility] Last Admin: 11/06/17 08:47 Dose: 10 ml Sodium Chloride (Flush - Normal Saline) 10 ml IVF PRN PRN PRN Reason: Saline Flush Last Admin: 11/05/17 08:43 Dose: 10 ml Vitamin B Complex/Vit C/Folic Acid (Nephro-Yuly Tablet) 1 tab PO HS [facility] Last Admin: 11/05/17 20:08 Dose: 1 tab
--- NOTE | 2017-11-06 16:46 | RAD ---
PORTABLE AP CHEST X-RAY: 11/06/2017 HISTORY: Shortness of breath. COMPARISON: 11/02/2017 FINDINGS: The cardiac silhouette remains enlarged. The pulmonary vasculature is magnified by projection. Ther e is suboptimal evaluation of the left lung base, but no definite focal consolidation is seen. There is an irregular, nodular density seen overlying the right hilar region, which was not appreciated on the prior exam or on the study of 04/01/2016. A developing pulmonary nodule in this region is a pos sibility. Further evaluation with CT scan thorax is recommended. The lungs otherwise appear clear. There is bilateral glenohumeral osteoarthropathy and degenerative change in the spine. Vascular lee ann cification is seen in the thoracic aorta. IMPRESSION: Bilobed nodular density in the right hilar region, not seen on prior studies. Further evaluation wit h CT scan thorax is recommended. POS: [facility]
[2017-11-06] MEDS: Losartan 25 MG TAB PO SCH (20:29)
[2017-11-06] MEDS: Famotidine 20 MG TAB PO SCH (20:30)
[2017-11-06] MEDS: Folic Acid/Vit B Comp W-C PO SCH (20:30)
[2017-11-07] MEDS: Cipro 250 MG TAB PO SCH ×2 (06:16→22:08)
[2017-11-07] MEDS ORDERED: Heparin 10,000 UNITS/ 10 ML VIAL ONE (10:00)
[2017-11-07 10:23] LABS: Hemoglobin 11.2 g/dL (12.0-16.0); Mean Corpuscular HGB CONC 33.2 g/dL (32.0-36.0); Mean Corpuscular Hemoglobin 34.6 pg (27.0-31.0); Mean Platelet Volume 7.9 fL (7.4-10.4); Platelet Count 122 thou/uL (130-400); RBC Distribution Width 14.8 % (11.5-14.5); Red Blood Cell (RBC) Count 3.24 mill/uL (4.20-5.40); White Blood Cell (WBC) Count 7.3 thou/uL (4.8-10.8)
[2017-11-07 10:34] LABS: Anisocytosis SLIGHT = 6-15 cells (100X) (0-5/hpf); Band 3 % (5-11); Lymphocytes 3 % (21-51); MDiff Complete? YES; Monocytes 5 % (0-10); Neutrophil 89 % (42-75)
[2017-11-07 10:35] LABS: PLT Morphology Comment Appears Decreased
[2017-11-07] MEDS: Artificial Tear Sol 15 ML BOT EA EYE SCH ×2 (11:36→22:09)
[2017-11-07] MEDS: cefTRIAXone\\ROCEPHIN 1 GM, Syringe 0.4 ML in Sterile Water 9.6 ML SLOW IVP SCH (12:02)
[2017-11-07] MEDS: Calcium Acetate 667 MG CAP PO SCH ×2 (13:58→18:13)
[2017-11-07] MEDS: Furosemide 40 MG TAB PO SCH ×2 (13:59→22:08)
[2017-11-07] MEDS: Clopidogrel Bisulfate 75 MG TAB PO SCH (13:59)
[2017-11-07] MEDS: Gabapentin 100 MG CAP PO SCH ×3 (13:59→22:08)
[2017-11-07] MEDS: Amiodarone 200 MG TAB PO SCH (13:59)
[2017-11-07] MEDS: Docusate 100 MG CAP PO SCH ×2 (13:59→22:08)
[2017-11-07] MEDS: Ubidecarenone 50 MG CAP PO SCH (14:00)
[2017-11-07] MEDS: Lactinex Tablet PO SCH (14:00)
--- NOTE | 2017-11-07 15:15 | CT ---
CT CHEST WITHOUT CONTRAST: Date: 11/07/17 HISTORY: Shortness of breath. COMPARISON: Radiograph from prior day. FINDINGS: There are a few tree-in-bud opacities in the superior segment of the right lower lobe. Small effusion s. There is some ground-glass haziness in the lower lobes. Heart size is enlarged. There are also a f ew peripheral central lobular opacities in the posterior segment of the right upper lobe. There is br onchial wall thickening. Atelectasis within the left lung base. Upper abdomen is unremarkable. No thoracic spine compression fracture. Flowing anterior osteophytes o f the thoracic spine. Severe degenerative changes of the glenohumeral joints. IMPRESSION: 1. Corresponding to the radiograph are multiple nodular densities in the posterior segment right upp er lobe and superior segment right lower lobe, concerning for bronchopneumonia. Aspiration is also a possibility. Follow-up recommended. Bronchoscopy may be warranted. Atypical infectious process is lik gold. 2. Cardiomegaly. 3. Mild pulmonary edema. POS: [facility]
[2017-11-07] MEDS: Lidocaine-Prilocaine 2.5% Cream 5 GM TUBE TOP SCH (19:06)
[2017-11-07] MEDS: Losartan 25 MG TAB PO SCH (22:07)
[2017-11-07] MEDS: Folic Acid/Vit B Comp W-C PO SCH (22:08)
[2017-11-07] MEDS: Famotidine 20 MG TAB PO SCH (22:08)
[2017-11-08] MEDS: hydrALAZINE 20 MG/ML VIAL SLOW IVP PRN (04:16)
[2017-11-08 05:16] VITALS: BMI 32.0
--- NOTE | 2017-11-08 09:02 | PDOC.PN ---
- Subjective Encounter Start Date: 11/07/17 Encounter Start Time: 09:30 Subjective: pt seen in dialysis, denies any pain - Objective Resuscitation Status: Resuscitation Status DNR:Do Not Resuscitate Vital Signs & Weight: Vital Signs (12 hours) Temp Pulse Resp BP BP BP Pulse Ox 11/08/17 08:47 97.4 F L 116 H 20 169/96 H 96 11/08/17 04:16 97.2 F L 110 H 20 176/96 H 176/96 H 97 11/08/17 00:32 97.9 F 104 H 18 169/90 H 94 L 11/08/17 00:20 95 Weight Weight 192 lb 8 oz I&O: 11/07/17 11/08/17 11/09/17 06:59 06:59 06:59 Intake Total 220 30 Output Total 3400 Balance 220 -3370 Result Diagrams: 11/07/17 09:53 11/05/17 05:09 Additional Labs: Accuchecks 11/08/17 11/07/17 11/07/17 05:44 20:37 16:47 POC Glucose 138 H 109 97 11/07/17 12:43 POC Glucose 102 Phys Exam - Physical Examination HEENT: PERRLA, moist MMs, sclera anicteric, TM's clear, oral pharynx no lesions , 2+ tonsils Neck: no nodes, no JVD, supple, full ROM Respiratory: wheezing present rhonchi all over lungs Cardiovascular: RRR, no significant murmur, no rub, gallop, irregular Gastrointestinal: soft, non-tender, no distention, positive bowel sounds mild lower ext edema Dx/Plan - Plan (1) Acute respiratory failure with hypoxia (2) Acute on chronic systolic CHF (congestive heart failure) (3) ESRD (end stage renal disease) on dialysis (4) Acute encephalopathy (5) Chronic a-fib - Plan continue antibiotics, family welfare social work professor, speech therapy, DVT proph w/SCDs Continue supportive mgmt -: HD per Renal service -: INSTRUCTOR GROUND SERVICES for ? dysphagia -: Continue ASA and Plavix -: steroids discontinued ct chest ordered did speak with family about possible hospice * . Review of Systems - Review of Systems Other: unable to participate - Medications/Allergies Allergies/Adverse Reactions: Allergies Allergy/AdvReac Type Severity Reaction Status Date / Time piroxicam [From Feldene] Allergy Intermediate Nausea Verified 06/21/13 02:33 lisinopril Allergy Verified 11/02/17 16:20 NSAIDS (Non-Steroidal Allergy Verified 11/02/17 16:20 Anti-Inflamma Medications: Current Medications Acetaminophen (Tylenol) 1,000 mg PO Q6H PRN PRN Reason: Headache/Fever or Mild Pain Last Admin: 11/03/17 05:09 Dose: 1,000 mg Acidophilus (Floranex) 1 tab PO DAILY [facility] Last Admin: 11/08/17 09:05 Dose: 1 tab Albuterol/Ipratropium (Duoneb) 3 ml NEB Q4H PRN PRN Reason: SOB &/or Wheezing Last Admin: 11/06/17 13:21 Dose: 3 ml Amiodarone HCl (Cordarone) 200 mg PO DAILY [facility] Last Admin: 11/08/17 09:07 Dose: 200 mg Artificial Tears (Tears Renewed 15ml Bottle) 0 drop EA EYE BID [facility] Last Admin: 11/08/17 09:04 Dose: 2 drop Aspirin (Aspirin Chewable) 81 mg PO DAILY [facility] Last Admin: 11/08/17 09:07 Dose: 81 mg Calcium Acetate (Phoslo) 667 mg PO PRN PRN PRN Reason: WITH SNACKS Calcium Acetate (Phoslo) 1,334 mg PO TID-WM [facility] Last Admin: 11/08/17 09:09 Dose: Not Given Cholecalciferol (Vitamin D3) 2,000 units PO DAILY [facility] Last Admin: 11/08/17 09:08 Dose: 2,000 units Clonidine (Catapres) 0.1 mg PO Q4H PRN PRN Reason: Systolic BP > 180 Last Admin: 11/05/17 00:26 Dose: 0.1 mg Clopidogrel Bisulfate (Plavix) 75 mg PO DAILY [facility] Last Admin: 11/08/17 09:09 Dose: Not Given Coenzyme Q10 (Coenzyme Q10) 100 mg PO DAILY [facility] Last Admin: 11/08/17 09:08 Dose: Not Given Dextrose/Water (Dextrose 50%) 25 gm SLOW IVP PRN PRN PRN Reason: Hypoglycemia Docusate Sodium (Colace) 100 mg PO BID [facility] Last Admin: 11/08/17 09:09 Dose: Not Given Famotidine (Pepcid) 20 mg PO 2100 [facility] Last Admin: 11/07/17 22:08 Dose: 20 mg Furosemide (Lasix) 40 mg PO BID [facility] Last Admin: 11/08/17 09:08 Dose: 40 mg Gabapentin (Neurontin) 100 mg PO TID [facility] Last Admin: 11/08/17 09:08 Dose: 100 mg Glucagon (Glucagon) 1 mg IM PRN PRN PRN Reason: Hypoglycemia Hydralazine HCl (Apresoline) 10 mg SLOW IVP Q4H PRN PRN Reason: Systolic BP > 180 Last Admin: 11/08/17 04:16 Dose: 10 mg Dextrose/Water (D5w) 1,000 mls @ 0 mls/hr IV .Q0M PRN; As Directed PRN Reason: Hypoglycemia Ampicillin Sodium/Sulbactam (Sodium 1.5 gm/ Sodium Chloride) 100 mls @ 200 mls/ hr IVPB Q6H [facility] Last Admin: 11/08/17 10:53 Dose: Not Given Insulin Human Regular (Humulin R) 0 units SC .MILD SLIDING SCALE PRN PRN Reason: Mild Correctional Scale Insulin Human Regular (Humulin R) 0 units SC .BEDTIME SLIDING SC PRN PRN Reason: Bedtime Correctional Scale Isosorbide Mononitrate (Imdur) 60 mg PO DAILY [facility] Last Admin: 11/08/17 09:08 Dose: 60 mg Lidocaine/Prilocaine (Emla 2.5%) 0 gm TOP MoWeFr [facility] Last Admin: 11/07/17 19:06 Dose: Not Given Losartan Potassium (Cozaar) 50 mg PO HS [facility] Last Admin: 11/07/17 22:07 Dose: 50 mg Ondansetron HCl (Zofran Odt) 4 mg PO Q6H PRN PRN Reason: Nausea/Vomiting Ondansetron HCl (Zofran) 4 mg IVP Q6H PRN PRN Reason: Nausea/Vomiting Phenol (Chloraseptic [place] 180 Ml Bot) 0 ml PO Q4H PRN PRN Reason: SORE THROAT Potassium Chloride (Klor-Con) 10 meq PO DAILY [facility] Last Admin: 11/08/17 09:06 Dose: 10 meq Sodium Chloride (Flush - Normal Saline) 10 ml IVF Q12HR [facility] Last Admin: 11/08/17 09:06 Dose: 10 ml Sodium Chloride (Flush - Normal Saline) 10 ml IVF PRN PRN PRN Reason: Saline Flush Last Admin: 11/05/17 08:43 Dose: 10 ml Vitamin B Complex/Vit C/Folic Acid (Nephro-Yuly Tablet) 1 tab PO HS [facility] Last Admin: 11/07/17 22:08 Dose: 1 tab
[2017-11-08] MEDS: Artificial Tear Sol 15 ML BOT EA EYE SCH ×2 (09:04→22:15)
[2017-11-08] MEDS: Lactinex Tablet PO SCH ×2 (09:05→22:16)
[2017-11-08] MEDS: Amiodarone 200 MG TAB PO SCH (09:07)
[2017-11-08] MEDS: Gabapentin 100 MG CAP PO SCH ×3 (09:08→22:16)
[2017-11-08] MEDS: Furosemide 40 MG TAB PO SCH ×2 (09:08→22:16)
[2017-11-08] MEDS: Ubidecarenone 50 MG CAP PO SCH (09:08)
[2017-11-08] MEDS: Clopidogrel Bisulfate 75 MG TAB PO SCH (09:09)
[2017-11-08] MEDS: Calcium Acetate 667 MG CAP PO SCH ×3 (09:09→18:25)
[2017-11-08] MEDS: Docusate 100 MG CAP PO SCH ×2 (09:09→22:16)
[2017-11-08] MEDS: Ampicillin/Sulbactam 1.5 GM in Sodium Chloride 0.9% 100 ML IVPB SCH ×2 (10:53→18:25)
--- NOTE | 2017-11-08 12:05 | PDOC.PN ---
- Subjective Encounter Start Date: 11/08/17 Encounter Start Time: 09:30 Subjective: pt up in bed does not appear in any distress - Objective Resuscitation Status: Resuscitation Status DNR:Do Not Resuscitate Vital Signs & Weight: Vital Signs (12 hours) Temp Pulse Resp BP BP BP Pulse Ox 11/08/17 08:47 97.4 F L 116 H 20 169/96 H 96 11/08/17 04:16 97.2 F L 110 H 20 176/96 H 176/96 H 97 11/08/17 00:32 97.9 F 104 H 18 169/90 H 94 L 11/08/17 00:20 95 Weight Weight 192 lb 8 oz I&O: 11/07/17 11/08/17 11/09/17 06:59 06:59 06:59 Intake Total 220 30 Output Total 3400 Balance 220 -3370 Result Diagrams: 11/07/17 09:53 11/05/17 05:09 Additional Labs: Accuchecks 11/08/17 11/08/17 11/07/17 10:35 05:44 20:37 POC Glucose 139 H 138 H 109 11/07/17 11/07/17 16:47 12:43 POC Glucose 97 102 Phys Exam - Physical Examination HEENT: PERRLA, moist MMs, sclera anicteric, TM's clear, oral pharynx no lesions , 2+ tonsils Respiratory: wheezing present mild rhonchi all over Cardiovascular: RRR, no significant murmur, no rub, gallop, irregular Gastrointestinal: soft, non-tender, no distention, positive bowel sounds Musculoskeletal: edema present Dx/Plan - Plan (1) Acute respiratory failure with hypoxia (2) Acute on chronic systolic CHF (congestive heart failure) (3) ESRD (end stage renal disease) on dialysis (4) Acute encephalopathy (5) Chronic a-fib 6) aspiration pneumonia - Plan continue antibiotics, adoption social worker, speech therapy, DVT proph w/SCDs Continue supportive mgmt -: HD per Renal service -: PIPER HELPER for ? dysphagia -: Continue ASA and Plavix -: steroids discontinued ct chest ordered did speak with family about possible hospice family meeting today with palliative for possible hospice will switch pt's abx to unasyn * .. Review of Systems - Review of Systems Other: unable to participate - Medications/Allergies Allergies/Adverse Reactions: Allergies Allergy/AdvReac Type Severity Reaction Status Date / Time piroxicam [From Feldene] Allergy Intermediate Nausea Verified 06/21/13 02:33 lisinopril Allergy Verified 11/02/17 16:20 NSAIDS (Non-Steroidal Allergy Verified 11/02/17 16:20 Anti-Inflamma Medications: Current Medications Acetaminophen (Tylenol) 1,000 mg PO Q6H PRN PRN Reason: Headache/Fever or Mild Pain Last Admin: 11/03/17 05:09 Dose: 1,000 mg Acidophilus (Floranex) 1 tab PO DAILY [facility] Last Admin: 11/08/17 09:05 Dose: 1 tab Albuterol/Ipratropium (Duoneb) 3 ml NEB Q4H PRN PRN Reason: SOB &/or Wheezing Last Admin: 11/06/17 13:21 Dose: 3 ml Amiodarone HCl (Cordarone) 200 mg PO DAILY [facility] Last Admin: 11/08/17 09:07 Dose: 200 mg Artificial Tears (Tears Renewed 15ml Bottle) 0 drop EA EYE BID [facility] Last Admin: 11/08/17 09:04 Dose: 2 drop Aspirin (Aspirin Chewable) 81 mg PO DAILY [facility] Last Admin: 11/08/17 09:07 Dose: 81 mg Calcium Acetate (Phoslo) 667 mg PO PRN PRN PRN Reason: WITH SNACKS Calcium Acetate (Phoslo) 1,334 mg PO TID-WM [facility] Last Admin: 11/08/17 09:09 Dose: Not Given Cholecalciferol (Vitamin D3) 2,000 units PO DAILY [facility] Last Admin: 11/08/17 09:08 Dose: 2,000 units Clonidine (Catapres) 0.1 mg PO Q4H PRN PRN Reason: Systolic BP > 180 Last Admin: 11/05/17 00:26 Dose: 0.1 mg Clopidogrel Bisulfate (Plavix) 75 mg PO DAILY [facility] Last Admin: 11/08/17 09:09 Dose: Not Given Coenzyme Q10 (Coenzyme Q10) 100 mg PO DAILY [facility] Last Admin: 11/08/17 09:08 Dose: Not Given Dextrose/Water (Dextrose 50%) 25 gm SLOW IVP PRN PRN PRN Reason: Hypoglycemia Docusate Sodium (Colace) 100 mg PO BID [facility] Last Admin: 11/08/17 09:09 Dose: Not Given Famotidine (Pepcid) 20 mg PO 2100 [facility] Last Admin: 11/07/17 22:08 Dose: 20 mg Furosemide (Lasix) 40 mg PO BID [facility] Last Admin: 11/08/17 09:08 Dose: 40 mg Gabapentin (Neurontin) 100 mg PO TID [facility] Last Admin: 11/08/17 09:08 Dose: 100 mg Glucagon (Glucagon) 1 mg IM PRN PRN PRN Reason: Hypoglycemia Hydralazine HCl (Apresoline) 10 mg SLOW IVP Q4H PRN PRN Reason: Systolic BP > 180 Last Admin: 11/08/17 04:16 Dose: 10 mg Dextrose/Water (D5w) 1,000 mls @ 0 mls/hr IV .Q0M PRN; As Directed PRN Reason: Hypoglycemia Ampicillin Sodium/Sulbactam (Sodium 1.5 gm/ Sodium Chloride) 100 mls @ 200 mls/ hr IVPB Q6H [facility] Last Admin: 11/08/17 10:53 Dose: Not Given Insulin Human Regular (Humulin R) 0 units SC .MILD SLIDING SCALE PRN PRN Reason: Mild Correctional Scale Insulin Human Regular (Humulin R) 0 units SC .BEDTIME SLIDING SC PRN PRN Reason: Bedtime Correctional Scale Isosorbide Mononitrate (Imdur) 60 mg PO DAILY [facility] Last Admin: 11/08/17 09:08 Dose: 60 mg Lidocaine/Prilocaine (Emla 2.5%) 0 gm TOP MoWeFr [facility] Last Admin: 11/07/17 19:06 Dose: Not Given Losartan Potassium (Cozaar) 50 mg PO HS [facility] Last Admin: 11/07/17 22:07 Dose: 50 mg Ondansetron HCl (Zofran Odt) 4 mg PO Q6H PRN PRN Reason: Nausea/Vomiting Ondansetron HCl (Zofran) 4 mg IVP Q6H PRN PRN Reason: Nausea/Vomiting Phenol (Chloraseptic [place] 180 Ml Bot) 0 ml PO Q4H PRN PRN Reason: SORE THROAT Potassium Chloride (Klor-Con) 10 meq PO DAILY [facility] Last Admin: 11/08/17 09:06 Dose: 10 meq Sodium Chloride (Flush - Normal Saline) 10 ml IVF Q12HR [facility] Last Admin: 11/08/17 09:06 Dose: 10 ml Sodium Chloride (Flush - Normal Saline) 10 ml IVF PRN PRN PRN Reason: Saline Flush Last Admin: 11/05/17 08:43 Dose: 10 ml Vitamin B Complex/Vit C/Folic Acid (Nephro-Yuly Tablet) 1 tab PO HS [facility] Last Admin: 11/07/17 22:08 Dose: 1 tab
[2017-11-08] MEDS: Losartan 25 MG TAB PO SCH (22:16)
[2017-11-08] MEDS: Folic Acid/Vit B Comp W-C PO SCH (22:16)
[2017-11-08] MEDS: Famotidine 20 MG TAB PO SCH (22:16)
[2017-11-09] MEDS: Ampicillin/Sulbactam 1.5 GM in Sodium Chloride 0.9% 100 ML IVPB SCH ×4 (01:23→21:35)
[2017-11-09 07:40] LABS: Hemoglobin 11.6 g/dL (12.0-16.0); Mean Corpuscular HGB CONC 32.7 g/dL (32.0-36.0); Mean Corpuscular Hemoglobin 33.7 pg (27.0-31.0); Mean Platelet Volume 7.6 fL (7.4-10.4); Platelet Count 111 thou/uL (130-400); RBC Distribution Width 14.9 % (11.5-14.5); Red Blood Cell (RBC) Count 3.44 mill/uL (4.20-5.40)
[2017-11-09 07:53] LABS: Anion Gap 18 mmol/L (10-20); BUN (Urea Nitrogen) 81 mg/dL (9.8-20.1); Calc. Creatinine Clearance 11 mL/min (70-130); Calcium 9.1 mg/dL (7.8-10.44); Carbon Dioxide 26 mmol/L (23-31); Chloride 98 mmol/L (98-107); Estimated GFR-MDRD 10; Glucose 126 mg/dL (83-110); Potassium 4.9 mmol/L (3.5-5.1); Sodium 137 mmol/L (136-145)
[2017-11-09 08:18] LABS: Band 7 % (5-11); Lymphocytes 12 % (21-51); Monocytes 6 % (0-10); Myelocyte 1 % (0-0); Neutrophil 74 % (42-75)
[2017-11-09 08:19] LABS: MDiff Complete? YES; Macrocytosis SLIGHT = 6-15 cells (100X) (0-5/hpf); PLT Morphology Comment Appears Decreased; Polychromasia SLIGHT = 2-3 cells (100X) (0-2/hpf)
[2017-11-09] MEDS ORDERED: Heparin 10,000 UNITS/ 10 ML VIAL ONE (10:00)
[2017-11-09] MEDS: Calcium Acetate 667 MG CAP PO SCH ×3 (11:46→15:58)
[2017-11-09] MEDS: Ubidecarenone 50 MG CAP PO SCH (11:47)
[2017-11-09] MEDS: Clopidogrel Bisulfate 75 MG TAB PO SCH (11:47)
[2017-11-09] MEDS: Gabapentin 100 MG CAP PO SCH ×3 (11:48→21:23)
[2017-11-09] MEDS: Amiodarone 200 MG TAB PO SCH (11:48)
[2017-11-09] MEDS: Docusate 100 MG CAP PO SCH ×2 (11:48→21:23)
[2017-11-09] MEDS: Artificial Tear Sol 15 ML BOT EA EYE SCH ×2 (11:49→21:23)
[2017-11-09] MEDS: Lidocaine-Prilocaine 2.5% Cream 5 GM TUBE TOP SCH (11:49)
--- NOTE | 2017-11-09 13:32 | PDOC.PN ---
- Subjective Encounter Start Date: 11/09/17 Encounter Start Time: 10:00 Subjective: pt in dialysis more awake denies any complains - Objective Resuscitation Status: Resuscitation Status DNR:Do Not Resuscitate Vital Signs & Weight: Vital Signs (12 hours) Temp Pulse Resp BP Pulse Ox 11/09/17 11:40 96.9 F L 94 18 168/76 H 98 11/09/17 09:35 97.9 F 111 H 13 11/09/17 05:41 94 L 11/09/17 04:43 97.9 F 111 H 13 145/86 H 92 L Weight Weight 193 lb 8 oz I&O: 11/08/17 11/09/17 11/10/17 06:59 06:59 06:59 Intake Total 30 212.4 Output Total 3400 Balance -3370 212.4 Result Diagrams: 11/09/17 07:25 11/09/17 07:25 Additional Labs: Accuchecks 11/08/17 11/08/17 20:54 16:04 POC Glucose 120 H 124 H Phys Exam - Physical Examination HEENT: PERRLA, moist MMs, sclera anicteric, TM's clear, oral pharynx no lesions , 2+ tonsils Neck: no nodes, no JVD, supple, full ROM Respiratory: wheezing present rhonchi all over Cardiovascular: RRR, no significant murmur, no rub, gallop, irregular Gastrointestinal: soft, non-tender, no distention, positive bowel sounds Musculoskeletal: edema present Neurological: non-focal, normal sensation, moves all 4 limbs Deviation from normal: alert to self Dx/Plan - Plan (1) Acute respiratory failure with hypoxia (2) Acute on chronic systolic CHF (congestive heart failure) (3) ESRD (end stage renal disease) on dialysis (4) Acute encephalopathy (5) Chronic a-fib 6) aspiration pneumonia - Plan continue antibiotics, social research assistant, speech therapy, DVT proph w/SCDs Continue supportive mgmt -: HD per Renal service -: [employer] for ? dysphagia -: Continue ASA and Plavix -: steroids discontinued ct chest ordered did speak with family about possible hospice family meeting today with palliative for possible hospice will switch pt's abx to unasyn * * 11/09 Had a long conversation with family about hospice. Pt's family hesistant about stopping dialysis. Did speak with them again today since pt is NPO due to aspiration precaution. Pt's family does not want pt to have peg or ng tube. Spoke with family again today and they were ok with feeding her food since she loved to cook and eat. The family is aware of aspiration and they are ok with it. Plan to discharge pt back to longterm in am. Palliative will follow pt and when pt's condition worsens family will switch pt to hospice. * . Review of Systems - Review of Systems Eyes: negative: Pain, Vision Change, Conjunctivae Inflammation, Eyelid Inflammation, Redness, Other ENT: negative: Ear Pain, Ear Discharge, Nose Pain, Nose Discharge, Nose Congestion, Mouth Pain, Mouth Swelling, Throat Pain, Throat Swelling, Other Respiratory: negative: Cough, Dry, Shortness of Breath, Hemoptysis, SOB with Excertion, Pleuritic Pain, Sputum, Wheezing Cardiovascular: negative: chest pain, palpitations, orthopnea, paroxysmal nocturnal dyspnea, edema, light headedness, other Gastrointestinal: negative: Nausea, Vomiting, Abdominal Pain, Diarrhea, Constipation, Melena, Hematochezia, Other - Medications/Allergies Allergies/Adverse Reactions: Allergies Allergy/AdvReac Type Severity Reaction Status Date / Time piroxicam [From Feldene] Allergy Intermediate Nausea Verified 06/21/13 02:33 lisinopril Allergy Verified 11/02/17 16:20 NSAIDS (Non-Steroidal Allergy Verified 11/02/17 16:20 Anti-Inflamma Medications: Current Medications Acetaminophen (Tylenol) 1,000 mg PO Q6H PRN PRN Reason: Headache/Fever or Mild Pain Last Admin: 11/03/17 05:09 Dose: 1,000 mg Acidophilus (Floranex) 1 tab PO DAILY [facility] [place] Last Admin: 11/08/17 22:16 Dose: 1 tab Albuterol/Ipratropium (Duoneb) 3 ml NEB Q4H PRN PRN Reason: SOB &/or Wheezing Last Admin: 11/06/17 13:21 Dose: 3 ml Amiodarone HCl (Cordarone) 200 mg PO DAILY [facility] [place] Last Admin: 11/09/17 11:48 Dose: 200 mg Artificial Tears (Tears Renewed 15ml Bottle) 0 drop EA EYE BID [facility] [place] Last Admin: 11/09/17 11:49 Dose: 2 drop Aspirin (Aspirin Chewable) 81 mg PO DAILY [facility] [place] Last Admin: 04/25/18 11:47 Dose: 81 mg Calcium Acetate (Phoslo) 667 mg PO PRN PRN PRN Reason: WITH SNACKS Calcium Acetate (Phoslo) 1,334 mg PO TID[facility] Last Admin: 11/09/17 11:46 Dose: 1,334 mg Carvedilol (Coreg) 12.5 mg PO BID[facility] Cholecalciferol (Vitamin D3) 2,000 units PO DAILY [facility] [place] Last Admin: 11/09/17 11:47 Dose: 2,000 units Clonidine (Catapres) 0.1 mg PO Q4H PRN PRN Reason: Systolic BP > 180 Last Admin: 11/05/17 00:26 Dose: 0.1 mg Clopidogrel Bisulfate (Plavix) 75 mg PO DAILY [facility] [place] Last Admin: 11/09/17 11:47 Dose: 75 mg Coenzyme Q10 (Coenzyme Q10) 100 mg PO DAILY [facility] [place] Last Admin: 11/09/17 11:47 Dose: 100 mg Dextrose/Water (Dextrose 50%) 25 gm SLOW IVP PRN PRN PRN Reason: Hypoglycemia Docusate Sodium (Colace) 100 mg PO BID [facility] [place] Last Admin: 11/09/17 11:48 Dose: Not Given Famotidine (Pepcid) 20 mg PO 2100 [facility] [place] Last Admin: 11/08/17 22:16 Dose: 20 mg Gabapentin (Neurontin) 100 mg PO TID [facility] [place] Last Admin: 11/09/17 11:48 Dose: 100 mg Glucagon (Glucagon) 1 mg IM PRN PRN PRN Reason: Hypoglycemia Hydralazine HCl (Apresoline) 10 mg SLOW IVP Q4H PRN PRN Reason: Systolic BP > 180 Last Admin: 11/08/17 04:16 Dose: 10 mg Dextrose/Water (D5w) 1,000 mls @ 0 mls/hr IV .Q0M PRN; As Directed PRN Reason: Hypoglycemia Ampicillin Sodium/Sulbactam (Sodium 1.5 gm/ Sodium Chloride) 100 mls @ 200 mls/ hr IVPB 0900,2100 [facility] [place] Insulin Human Regular (Humulin R) 0 units SC .MILD SLIDING SCALE PRN PRN Reason: Mild Correctional Scale Insulin Human Regular (Humulin R) 0 units SC .BEDTIME SLIDING SC PRN PRN Reason: Bedtime Correctional Scale Isosorbide Mononitrate (Imdur) 60 mg PO DAILY [facility] [place] Last Admin: 11/09/17 11:47 Dose: 60 mg Lidocaine/Prilocaine (Emla 2.5%) 0 gm TOP MoWeFr [facility] [place] Last Admin: 11/09/17 11:49 Dose: Not Given Losartan Potassium (Cozaar) 50 mg PO HS [facility] [place] Last Admin: 11/08/17 22:16 Dose: 50 mg Ondansetron HCl (Zofran Odt) 4 mg PO Q6H PRN PRN Reason: Nausea/Vomiting Ondansetron HCl (Zofran) 4 mg IVP Q6H PRN PRN Reason: Nausea/Vomiting Phenol (Chloraseptic [place] 180 Ml Bot) 0 ml PO Q4H PRN PRN Reason: SORE THROAT Potassium Chloride (Klor-Con) 10 meq PO DAILY [facility] [place] Last Admin: 11/09/17 11:46 Dose: 10 meq Sodium Chloride (Flush - Normal Saline) 10 ml IVF Q12HR [facility] [place] Last Admin: 11/09/17 11:49 Dose: Not Given Sodium Chloride (Flush - Normal Saline) 10 ml IVF PRN PRN PRN Reason: Saline Flush Last Admin: 11/05/17 08:43 Dose: 10 ml Vitamin B Complex/Vit C/Folic Acid (Nephro-Yuly Tablet) 1 tab PO [facility] Last Admin: 11/08/17 22:16 Dose: 1 tab
[2017-11-09] MEDS: Carvedilol 6.25 MG TAB PO SCH (15:58)
[2017-11-09] MEDS: Famotidine 20 MG TAB PO SCH (21:22)
[2017-11-09] MEDS: Folic Acid/Vit B Comp W-C PO SCH (21:23)
[2017-11-09] MEDS: Losartan 25 MG TAB PO SCH (21:23)
[2017-11-10] MEDS: Ampicillin/Sulbactam 1.5 GM in Sodium Chloride 0.9% 100 ML IVPB SCH ×2 (00:15→07:16)
[2017-11-10] MEDS: Lactinex Tablet PO SCH (09:03)
[2017-11-10] MEDS: Ubidecarenone 50 MG CAP PO SCH (09:03)
[2017-11-10] MEDS: Carvedilol 6.25 MG TAB PO SCH (09:04)
[2017-11-10] MEDS: Calcium Acetate 667 MG CAP PO SCH ×2 (09:04→12:35)
[2017-11-10] MEDS: Clopidogrel Bisulfate 75 MG TAB PO SCH (09:05)
[2017-11-10] MEDS: Amiodarone 200 MG TAB PO SCH (09:05)
[2017-11-10] MEDS: Artificial Tear Sol 15 ML BOT EA EYE SCH (09:05)
[2017-11-10] MEDS: Gabapentin 100 MG CAP PO SCH (09:05)
[2017-11-10] MEDS: Docusate 100 MG CAP PO SCH (09:06)
[2017-11-10 13:03] VITALS: BP 128/76; TEMP 96.4
--- NOTE | 2017-11-11 05:27 | DIS ---
DATE OF ADMISSION: 11/02/2017 DATE OF DISCHARGE: 11/10/2017 DISCHARGE DIAGNOSES: 1. Acute respiratory failure with hypoxia. 2. Acute on chronic systolic heart failure. 3. End-stage renal disease. 4. Acute encephalopathy. 5. Chronic atrial fibrillation. 6. Aspiration pneumonia. HOSPITAL COURSE: The patient is a very pleasant, 87-year-old female, who resides in a snf, who presented to the hospital with worsening shortness of breath. The patient initially was found to have volume overload and also was found to be hypoxic. She was taken for dialysis for excess removi ng of fluids. She was also started on broad spectrum antibiotics. Steroids were also started on thi s patient. The patient at this time, during this hospital course, underwent an echocardiogram, which indicated an EF of 20%-25% with moderately enlarged right atrium and moderate mitral regurgitation. The patient continued to improve throughout the hospital stay; however, upon Speech's evaluation, th e patient was found to have mild aspiration, at which point, the patient was put on aspiration precau tion and diet. However, Speech was concerned that even with aspiration precaution, she was still michelle ently aspirating. A repeat chest x-ray indicated worsening of bibasilar infiltrates, and at this butch e, CT chest was ordered, which indicated possible right upper lobe and superior segment of the right lower lobe concerning for bronchopneumonia aspiration is also a possibility. The patient also was fo und to have some debris in her bronchus. Extensive talk with the patient's family in regard to possi ble hospice, given patient's multiple organ involvement. However, the patient's family did not feel comfortable stopping dialysis, which would be required for the patient to go to hospice. I did speak with family in regard to starting the patient back on her pureed diet with nectar thick liquids with concerns of aspiration. The patient's family understands that she will be fed with a high risk for aspiration since the patient's family does not want the patient to have a PEG or an NG tube placement . The patient's daughter stated that her mother would pull out her NG tube or her PEG tube, and her mother enjoyed cooking food and eating. At this time, the decision was made to continue feeding the patient orally with the precautions for aspiration; however, there is a possibility that the patient would continue to aspirate. The patient's family has approved to continue to monitor the patient whshirley swain she is in the snf, and if the patient's respiratory status continues to deteriorate at th is time, they will consider hospice for this patient. We will continue antibiotics, Unasyn for the n ext 6 treatments with dialysis. The patient also had a very hard time getting a peripheral lining gi sonny her only one arm to use. The patient was found to have a little bit of blood when she had a dilcia l movement at this time, known that her platelets were mildly decreasing. We will stop the aspirin a nd the Plavix for now. We will recheck a CBC next week, and if her platelets improve, she can start back on her Plavix. HOME MEDICATIONS: As the following, vitamin D3 at 2000 units daily, Ultram 50 mg q.8 hours p.r.n., f olic acid 1 tab daily, potassium 10 mEq daily, Floranex 1 p.o. daily, isosorbide 60 mg daily, gabapen tin 100 mg t.i.d., Cozaar 50 mg at bedtime, amiodarone 200 mg p.o. daily, clonidine 0.1 mg p.o. q.4 hours p.r.n., Pepcid 20 mg at bedtime, carvedilol 12.5 b.i.d., and Unasyn 1.5 mg for 6 doses post-carmen lysis. PHYSICAL EXAMINATION: VITAL SIGNS: Temperature of 97.3, heart rate 94, respirations 18, oxygen saturation 97% on room air, and blood pressure 169/62. GENERAL: Awake, alert, oriented x3, does not appear in any distress. CARDIOVASCULAR: S1, S2 present. No murmurs, rubs, or gallops. LUNGS: Mild coarse rhonchi all over. ABDOMEN: Soft, nontender. Bowel sounds are present x2. EXTREMITIES: Mild +1 pitting edema. The patient will be discharged back to her snf. She will follow up with her PCP and her doc tor at the snf. Of note, I just want to make sure that may resume aspirin or Plavix once he r recheck platelets have improved. We will continue to monitor.
== END 2017-11-10 13:45 | DRG 291 ==
LOC: ERS 09:30 → 2NO 15:40
PROVIDERS: ADMIT Family Medicine; ATTEND Family Medicine
PROC: 5A1D70Z Performance of Urinary Filtration, Intermittent, Less than 6 Hours Per Day (ICD-10-PCS; principal; 2017-11-02)
DX: I13.2 Hypertensive heart and chronic kidney disease with heart failure and with stage 5 chronic kidney disease, or end stage renal disease (principal); I50.23 Acute on chronic systolic (congestive) heart failure; J96.01 Acute respiratory failure with hypoxia; J69.0 Pneumonitis due to inhalation of food and vomit; G92 Toxic encephalopathy; N18.6 End stage renal disease; I48.2 Chronic atrial fibrillation; Z99.2 Dependence on renal dialysis; Z79.899 Other long term (current) drug therapy; Z79.891 Long term (current) use of opiate analgesic; M19.90 Unspecified osteoarthritis, unspecified site; D63.1 Anemia in chronic kidney disease; Z85.3 Personal history of malignant neoplasm of breast; Z96.653 Presence of artificial knee joint, bilateral; E78.5 Hyperlipidemia, unspecified; Z79.02 Long term (current) use of antithrombotics/antiplatelets; Z88.8 Allergy status to other drugs, medicaments and biological substances; Z88.6 Allergy status to analgesic agent; Z99.3 Dependence on wheelchair; F32.9 Major depressive disorder, single episode, unspecified; F41.9 Anxiety disorder, unspecified; Z66 Do not resuscitate; Z86.73 Personal history of transient ischemic attack (TIA), and cerebral infarction without residual deficits; F03.90 Unspecified dementia, unspecified severity, without behavioral disturbance, psychotic disturbance, mood disturbance, and anxiety
CPT/HCPCS: 36415; 36416; 51701; 70450; 71045; 71250; 80048; 80053; 81003; 81015; 82553; 82805; 83690; 83735; 83880; 84484; 85007; 85025; 85027; 85610; 85730; 87040; 87086; 90935; 93005; 93306; 94640; 96365; 96367; 96374; 96375; A4216; A4353; G0257; G8996-GN-CK; G8997-GN-CJ; J0295; J0360; J0696; J0744; J1644; J2543; J2920; J2930; J3370; J7050; J7620